=== PATIENT | male | born 1980 | race Caucasian/White ===

== ENCOUNTER 2018-07-05 05:43 | Emergency (ER) | payer MEDICAID, OTHER ==
[~2018-07-05] VITALS: Ht 180.3 cm; Wt 77.1 kg
--- NOTE | 2018-07-05 06:39 | NUR ---
PATIENT WAS MSE BY DR COOL IN ROOM 02B.
[2018-07-05 06:44] VITALS: BP 110/77
--- NOTE | 2018-07-05 06:45 | NUR ---
Patient discharged to home in stable conditon. Written and verbal after care instructions given. Patient verbalizes understanding of instructions.
== END 2018-07-05 06:46 | disposition home or self-care (01) ==
LOC: ER 05:48
DX: M43.6 Torticollis (principal)
CPT/HCPCS: A4663